=== PATIENT | male | born 1960 | race Caucasian/White ===

== ENCOUNTER → 2016-06-27 | Outpatient (CLI) | payer OTHER ==
--- NOTE | 2016-06-27 09:16 | CPEKG ---
Heart Rate: 71 RR Interval: 845 P-R Interval: 216 QRSD Interval: 96 QT Interval: 364 QTC Interval: 396 P [place]: 41 QRS [place]: -24 T Wave [place]: 81 EKG Severity - ABNORMAL ECG - EKG Impression: SINUS RHYTHM EKG Impression: FIRST DEGREE AV BLOCK EKG Impression: IN COMPARISON TO PRIOR ECG, THE FIRST DEGREE AVB IS NEW Electronically Signed By: Darryn Lehman 27-Jun-2016 10:01:33
== END ==
LOC: BHFA 08:52
PROVIDERS: ATTEND Orthopaedic Surgery Hand Surgery
DX: Z01.810 Encounter for preprocedural cardiovascular examination (principal)